=== PATIENT | male | born 1950 | race Caucasian/White ===

== ENCOUNTER → 2017-12-29 06:00 | Day surgery (SDC) | payer MEDICARE, MEDICAID ==
[~2017-12-29 06:00] MED LIST: Acetaminophen TAB* 325 MG PO PRN; Buffered Lidocaine 0.9% SYRIN* 5 ML/SYR SYRINGE INTRADERM ONE; Buffered Lidocaine 0.9% SYRIN* 5 ML/SYR SYRINGE ONE; Bupivacaine 0.5% SDV PF* 10-30ML VIAL ONE; Cisatracurium* 2 MG/ML MDV 5 ML ONE; Dexamethasone IV* 4 MG/ML 1 ML (4 MG) ONE; DiMENhydriNATE IV* 50 MG/ML VIAL IV PUSH PRN; EPINEPHRINE 1 MG/ML 1 ML VIAL ONE; Famotidine IV* 10 MG/ML 2 ML (20 mg) ONE; HYDROcodone/ACETAMIN 5-325 MG* 1 TAB PO PRN; Ketorolac INJ* 30 MG/ML 1 ML VIAL ONE; Labetalol IV* 5 MG/ML 20 ML VIAL ONE; Levalbuterol 0.63MG/3ML NEB* UNIT OF USE INH PRN; Midazolam* 1 MG/ML 2 ML VIAL (2 MG) ONE; Naloxone* 0.4 MG/ML 1 ML VIAL IV PRN; Ondansetron INJ* 2 MG/ML VIAL IV PRN; Ondansetron INJ* 2 MG/ML VIAL ONE; PROCHLORPERAZINE INJ 5 MG/ML 2 ML VIAL IV PRN; Propofol* 10 MG/ML 20 ML BTL IV PUSH ONE; ROPIVACAINE 5 MG/ML 30 ML BTL (0.5%) ONE; Succinylcholine* 20 MG/ML 10 ML VIAL ONE; ceFAZolin 2 GM in 100 MLS NS (*) BAG IVPB ONE; fentaNYL* 50 MCG/ML 2 ML VIAL (100 MCG VIAL) IV PRN; fentaNYL* 50 MCG/ML 2 ML VIAL (100 MCG VIAL) ONE; fentaNYL* 50 MCG/ML 5 ML VIAL (250 MCG VIAL) ONE
[2017-12-29 13:43] VITALS: BP 140/82
--- NOTE | 2018-01-01 07:59 | OP ---
DATE OF OPERATION: 12/29/17 - [facility] DATE OF : 46 SURGEON: Marquis Lamb MD CLOTH WORKER: KEDAR Sylvester. A physician administrative assistant receptionist was required for the length of the procedure for positioning, assistance with instrumentation, and closure. ANESTHESIOLOGIST: Hakeem Cortes MD ANESTHESIA: General anesthesia, regional interscalene block anesthesia, local anesthesia with 10 cc of Marcaine 0.5% without epinephrine at the surgical incision sites. PRE-OP DIAGNOSES: 1. Left shoulder rotator cuff tear, recurrent. 2. Left shoulder subacromial bursitis and impingement. 3. Left shoulder possible biceps tendinosis, likely superior labral tear. 4. History of [address] Pappas at [facility], consisting of supraspinatus rotator cuff tendon repair, subacromial decompression, distal clavicle resection. POST-OP DIAGNOSES: 1. Left shoulder rotator cuff tendon tear, subscapularis. 2. Recurrent left shoulder rotator cuff tendon tear, supraspinatus, high grade , partial thickness. 3. Left shoulder subacromial bursitis and impingement. 4. Left shoulder biceps tendinosis and superior labral tear. 5. History of [address] Pappas. OPERATIVE PROCEDURE: 1. Left shoulder arthroscopic rotator cuff tendon repair, primary, subscapularis. 2. Left shoulder arthroscopic rotator cuff tendon repair, revision, supraspinatus. 3. Left shoulder arthroscopic subacromial decompression and bursectomy. 4. Left shoulder arthroscopic removal of foreign body, loose and foreign body, subacromial space. 5. Left shoulder arthroscopic limited debridement including release of biceps tendon, debridement of superior labrum, debridement of rotator interval and subacromial bursal tissue. ANTIBIOTICS: Ancef 2 g IV. IV FLUIDS: 500 cc crystalloid. COMPLICATIONS: None. SPECIMEN: None. IMPLANTS: Three suture anchors total, all Mitek Chidi and Chidi Gryphon anchors. There was one 4.5 mm double loaded suture anchor used for the subscapularis. There was 1 triple loaded 5.5 mm suture anchor used for a medial row of the supraspinatus. There was a knotless 5.5 mm suture anchor used for the lateral row and I used an additional stitch from that knotless anchor to place a simple stitch posterior to it. ESTIMATED BLOOD LOSS: Minimal. 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 See history and physical and prior clinic notes for full history. The patient responded insufficiently to nonoperative management and opted for surgery. CT arthrogram showed a communication of contrast between glenohumeral and subacromial spaces and a likely anterior supraspinatus rotator cuff tendon tear. Imaging showed 3 metallic suture anchors from prior supraspinatus rotator cuff tendon repair. There is much bony gap between the acromion and distal clavicle. There was, however, a reformation of a little bit of hook of the anterior most aspect of the acromion. There is some question of disease at the biceps and superior labrum both on imaging and exam. I spoke to the patient about biceps release versus tenodesis as needed. He deferred to my judgment. Given the patient's age and his diabetes, my preference was to do a biceps release and avoid another incision. DESCRIPTION OF PROCEDURE: In preoperative holding, the patient signed a written consent. Operative extremity was marked in preoperative holding. The patient underwent a regional interscalene block by Dr. Cortes. The patient was brought to the operating room, placed supine on operating room table. The patient was sedated and intubated. The patient was placed in the left lateral decubitus position. Axillary roll placed. All bony prominences padded. Beanbag was stiffened up. Left shoulder was placed in the appropriate amount of forward flexion and abduction with 15 pounds of longitudinal traction. Hair above the shoulder had been shaved. Left shoulder was prepped with ChloraPrep and then draped. Surgical time-out performed. 30 cc of normal saline was used into the glenohumeral joint posterior. I then established posterior glenohumeral joint portal and started my diagnostic arthroscopy. There was a significant tendinosis as well as tearing of the biceps tendon. So , I decided to go beyond that, I would be cutting the biceps tendon. There was no significant articular cartilage damage to the humeral head of the glenoid. There was some clear fraying of the labrum in multiple rotations. No loose bodies in the axillary pouch. I looked at the subscapularis. There were certainly concern regarding a superior edge tear as well as an undersurface tear as much as footprint was visible to me as I viewed this insertion in a variety of positions of the humeral head. I made a standard anterior glenohumeral joint portal under direct visualization. I smoothed some frayed labrum. I debrided some tissue in the rotator interval. I just introduced the arthroscopic scissors and kept the long head of the biceps tendon just off of its origin. Retracted distally. There was much tendon about the superior labrum that I smoothed out with the arthroscopic shaver. I looked about the undersurface of the supraspinatus. There was clearly some footprint, undersurface, visible but it was less than 5 to 6 mm. The tendon visible was all intact to its insertion. There was no retracted undersurface tear. I next looked more carefully at the subscapularis. I debrided some synovitic tissue about its insertion. It was cleared that there was a subscapularis tendon tear. I utilized a grasper and showed how the tendon should reduce to bone. I next established an anterosuperior portal. Through this portal, I prepared the footprint dye shaving it and then using an arthroscopic brandon, I then introduced a 7- mm Arthrex plastic cannula. I next made an anteroinferior portal, placed more medially such I would have an excellent trajectory to bone. With the metal cannula in place, I tacked bone and then placed my 4.5 mm double-loaded suture anchor. Utilizing my anterosuperior and anteroinferior portals, I then placed 2 stitches in the subscapularis. One was a horizontal mattress while the other one was more of a vertical mattress, but is truly oblique. Knots were tied. Sutures were cut. I liked the position at the subscapularis tendon. Excellent reduction. I then removed instruments and fluid from the glenohumeral joint. I then entered the subacromial space from posterior and anterior. There was not bursitic tissue up high, but eventually I realized there was significant bursitic tissue in the gutters about the humeral head. Immediately visible was a floating loose body consisting of synovitic tissue and some suture material, clearly from the patient's prior rotator cuff repair. A lateral subacromial portal was established under direct visualization. I used a grasper to remove the foreign and loose body. I then used an arthroscopic shaver from lateral to debride significant bursitic tissue about the gutters of the subacromial space opening that up nicely. It should be stated that when I was in the glenohumeral joint, I had placed a marking spinal needle, just prior to leaving the glenohumeral joint. This was placed in the anteriormost supraspinatus tendon where it appeared to be slightly thinned from its undersurface. As I entered the subacromial space, I was able to visualize where that needle was placed. There was some suture material present about that marking spinal needle, so the rotator cuff tear repair done previously had clearly involved that anterior aspect of the supraspinatus tendon. While there was no full-thickness tear immediately visible, I debrided some bursitic tissue overlying the rotator cuff and this allowed better and better visualization of the tendon itself. I next addressed the anterior aspect of the acromion. I debrided the undersurface of the acromion with a VAPR. I next removed approximately 8 mm of the anteriormost aspect of the acromion, flattening out the undersurface of the acromion, using an arthroscopic brandon. I next returned my visualization of the rotator cuff tendon. Anterior aspect of the supraspinatus tendon was probed with arthroscopic probe and then a switching stick. There was clearly some tendon material present there. I even returned my arthroscope to the glenohumeral joint as I probed this to confirm the lack of a full-thickness tear. However, looking closely at this rotator cuff, it seemed that there was clearly some amount of substantive bursal-sided tearing present that was likely to be symptomatic. I was able to take a grasper and reduced the tendon to bone that was torn, high grade, partial thickness. Therefore, he decided to do a supraspinatus revision rotator cuff repair. I completed the supraspinatus with an arthroscopic shaver. This involved debridement of very minimal amount of tissue. I cleared off some greater tuberosity footprint with arthroscopic shaver and then VAPR. I touched down with an arthroscopic brandon to best prepare the footprint. I next created a superolateral portal and placed a triple-loaded Mitek Gryphon anchor in bone. Bone fit was excellent. I placed 3 horizontal mattress stitches in the rotator cuff tendon using Mitek IDEAL suture passers. I waited to tie these knots until I passed all sutures. Repair of tendon to bone appeared excellent. In a desire to have a greater area of healing as well as to put some more fixation slightly more posterior, I decided to place a lateral row anchor. Therefore, I took one suture from each of the three medial row horizontal mattress stitches and I placed them in a knotless 5.5 mm suture anchor that placed more lateral in the footprint. I also used the suture present in that knotless anchor to place a simple stitch with the rotator cuff tendon tissue just posterior and medial to it. I probed my repair and liked it a lot. It was certainly stable as I moved the humeral head. I next reassessed my subacromial decompression. I debrided a little bit more acromion slightly more medially towards the AC joint. I then debrided some bursitic tissue about the AC joint. I confirmed the wide gap between acromion and distal clavicle, seen preoperatively on x-ray, evidence of a prior distal clavicle resection. I opened that up, removing some soft tissue with an arthroscopic shaver, but did not debride any more distal clavicle. I removed instruments and fluid from subacromial space. I closed the skin incisions with [id number] in 12 stitches using nylon 4-0 suture. At the request of Anesthesia, placed 10 cc of 0.5% Marcaine in the subcutaneous tissue surrounding those incisions. Xeroform, 4 x 4s, ABDs, foam tape. Sling with abduction pillow. Cooling unit. The patient was extubated and transferred to the PACU. DISPOSITION: The patient will start physical therapy within the week following surgery. Wound care instructions are in his paperwork. The patient will be given Percocet as needed for pain control and aspirin to prevent blood clot. We will follow up in 10 to 14 days postoperatively. [id number]/[facility] #: [id number] CARMEN
== END | disposition home or self-care (01) ==
LOC: OR 06:00
PROVIDERS: ATTEND Orthopaedic Surgery
DX: S46.012A Strain of muscle(s) and tendon(s) of the rotator cuff of left shoulder, initial encounter (principal); M75.22 Bicipital tendinitis, left shoulder; M75.52 Bursitis of left shoulder; M75.42 Impingement syndrome of left shoulder; E11.9 Type 2 diabetes mellitus without complications; Z79.84 Long term (current) use of oral hypoglycemic drugs; I25.10 Atherosclerotic heart disease of native coronary artery without angina pectoris; J44.9 Chronic obstructive pulmonary disease, unspecified; M10.9 Gout, unspecified; G89.18 Other acute postprocedural pain; X58.XXXA Exposure to other specified factors, initial encounter; Y92.9 Unspecified place or not applicable
CPT/HCPCS: J0330; J1100; J1885; J2250; J2405; J2704; J2795; J3010

== ENCOUNTER 2019-08-20 05:38 | Inpatient (IN) | payer MEDICARE, MEDICAID ==
--- NOTE | 2019-08-07 13:25 | HP ---
PREOPERATIVE HISTORY AND PHYSICAL: DATE OF SURGERY SCHEDULED: 08/20/19 DATE OF OFFICE VISIT: 08/07/19 ATTENDING PHYSICIAN: Nazanin Washington MD * (DICTATED BY KEDAR PIERRE) SURGERY SCHEDULED: Right total knee arthroplasty. CHIEF COMPLAINT: Right knee pain. HISTORY OF PRESENT ILLNESS: Mr. Martinez is a 69-year-old male with complaints of right knee pain, about 6-10/10, aching pain along the joint line of the right knee. Over the last 2 years, he has had discomfort, but the last 2 months have been quite severe. He can no longer walk more than a block without pain. He has difficulty stair climbing and standing. He has tried antiinflammatories, pain medication, and home exercise program and wears a brace without significant relief of his pain. He now elected to proceed with right total knee arthroplasty scheduled 08/20/19. PAST MEDICAL HISTORY: Significant for coronary artery disease, osteoarthritis, COPD, asthma, gout, and type 2 diabetes. PAST SURGICAL HISTORY: Carpal tunnel release, left rotator cuff surgery, thumb surgery on the right, cardiac stent placement x3. CURRENT MEDICATIONS: 1. Cyclobenzaprine 10 mg p.o. 3 times daily as needed. 2. Tramadol 50 mg 1 p.o. q.6 hours p.r.n. pain. 3. Naproxen 500 mg 1 p.o. b.i.d. as needed. 4. Victoza 0.6 mg p.o. daily. 5. Nitrostat 0.1 mg sublingual p.r.n. chest pain. 6. Allopurinol 100 mg p.o. daily. 7. Low-dose aspirin 81 one p.o. daily. 8. Glyburide/metformin 2.5/500 mg take 2 tablets b.i.d. 9. Ventolin 2 puffs every 4 hours as needed for shortness of breath. 10. Atenolol 50 mg p.o. daily. 11. Incruse Ellipta 62.5 mcg/inhaler as needed daily. 12. Hydrochlorothiazide 25 mg 1 p.o. daily. ALLERGIES: No known drug allergies. FAMILY HISTORY: Maternal heart disease, hypertension, and stroke. Father with a history of prostate cancer. SOCIAL HISTORY: The patient lives with his . He is retired. He does not use tobacco, alcohol, or recreational drugs. REVIEW OF SYSTEMS: No recent history of chest pain. He does have a chronic dry cough. There is chronic back pain. Occasional constipation. Purposeful weight loss. He denies recent shortness of breath. Denies urinary symptoms. PHYSICAL EXAMINATION GENERAL: He is alert and oriented x3, in no acute distress. Pleasant and cooperative. VITAL SIGNS: Height 68 inches, weight 243, pulse 87, BP 144/96. Temperature 96.8. HEENT: PERRLA. LUNGS: Clear to auscultation without wheeze. HEART: Regular rate and rhythm. No murmur auscultated. ABDOMEN: Obese, nontender. Normoactive bowel sounds x4 quadrants. EXTREMITIES: Right knee, no open wounds or excoriations. There is a moderate effusion of the knee joint, tenderness along the medial joint line roughly 10 degrees to 100 degrees flexion with noted patellofemoral crepitus. There is no varus or valgus instability. Positive Apley's and Venkatesh's. He has active dorsiflexion and plantarflexion of the right ankle. He has full sensation, has 2+ DP pulse. DIAGNOSTIC STUDIES/LAB DATA: Studies of the right knee, plain films revealed advanced osteoarthritis with essential [id number] contact in the medial and patellofemoral compartment. IMPRESSION: Advanced osteoarthritis of the right knee. PLAN: The patient has failed conservative management including cortisone injection, has elected to proceed with total knee arthroplasty, is scheduled with Dr. Washingtno on 08/20/19. Risks and benefits of the procedure fully discussed with Dr. Washington at the office visit today and he elected to proceed. He will follow up in roughly 10 to 14 days postoperatively. KEDAR PIERRE [id number]/[facility] #: [id number] CARMEN
[~2019-08-20 05:38] MED LIST changes: -Acetaminophen TAB* 325 MG PO PRN; -Buffered Lidocaine 0.9% SYRIN* 5 ML/SYR SYRINGE INTRADERM ONE; -Buffered Lidocaine 0.9% SYRIN* 5 ML/SYR SYRINGE ONE; +Buffered Lidocaine 1% SYRIN* 1 ML/SYRINGE INTRADERM ONE; -Bupivacaine 0.5% SDV PF* 10-30ML VIAL ONE; -Cisatracurium* 2 MG/ML MDV 5 ML ONE; -Dexamethasone IV* 4 MG/ML 1 ML (4 MG) ONE; -DiMENhydriNATE IV* 50 MG/ML VIAL IV PUSH PRN; -EPINEPHRINE 1 MG/ML 1 ML VIAL ONE; -Famotidine IV* 10 MG/ML 2 ML (20 mg) ONE; -HYDROcodone/ACETAMIN 5-325 MG* 1 TAB PO PRN; -Ketorolac INJ* 30 MG/ML 1 ML VIAL ONE; -Labetalol IV* 5 MG/ML 20 ML VIAL ONE; -Levalbuterol 0.63MG/3ML NEB* UNIT OF USE INH PRN; -Midazolam* 1 MG/ML 2 ML VIAL (2 MG) ONE; -Naloxone* 0.4 MG/ML 1 ML VIAL IV PRN; -Ondansetron INJ* 2 MG/ML VIAL IV PRN; -Ondansetron INJ* 2 MG/ML VIAL ONE; -PROCHLORPERAZINE INJ 5 MG/ML 2 ML VIAL IV PRN; -Propofol* 10 MG/ML 20 ML BTL IV PUSH ONE; -ROPIVACAINE 5 MG/ML 30 ML BTL (0.5%) ONE; -Succinylcholine* 20 MG/ML 10 ML VIAL ONE; +Tranexamic Acid 1,000 MG in NS 0.9% 50 ML* (outpatient use) IV SCH; -ceFAZolin 2 GM in 100 MLS NS (*) BAG IVPB ONE; -fentaNYL* 50 MCG/ML 2 ML VIAL (100 MCG VIAL) IV PRN; -fentaNYL* 50 MCG/ML 2 ML VIAL (100 MCG VIAL) ONE; -fentaNYL* 50 MCG/ML 5 ML VIAL (250 MCG VIAL) ONE
--- OUTSIDE RECORDS SUMMARY | 2019-08-20 05:42 | XMS REPORT | Continuity of Care Document ---
:1950 External Reference #:[id number] Author Name Nazanin Washington M.D. (transmitted by agent of provider Carmen Meza) Address [address] [place] [address] [place] [address] Care Team Providers Name Role Phone Annita Streeter MD - Internal Care Team Information Metal Spray Operator Medicine Etienne Brown NP - Family Care Team Information Metal Spray Operator [phone] Problems Active Problems Provider Date Localized, primary osteoarthritis Nazanin Washington M.D. Onset: 02/13/2019 Social History Type Date Description Comments Sex Unknown ETOH Use Denies alcohol use Tobacco Use Start: Unknown Patient has never smoked Smoking Status Reviewed: 08/07/19 Patient has never smoked Exercise Type/Frequency Exercises sporadically Allergies, Adverse Reactions, Alerts Description No Known Drug Allergies Medications Active Medications SIG Qnty Indications Ordering Date Provider Cyclobenzaprine HCL 1 tab PO three 30tabs Parvez Dallas, 04/22/2019 10mg Tablets times daily as needed Tramadol HCL Take One Tablet 30tabs M25.562 Nazanin Washington, 02/13/2019 50mg Tablets By Mouth Every M.D. 6 Hours as Needed For Pain; Maximum Daily Dose = 4 Naproxen 1 by mouth 60tabs S46.012A Marquis F 10/03/2017 500mg Tablets twice a day as MD Zainab needed pain Victoza 0.6 mg daily Unknown Nitrostat prn Unknown 0.1mg Tablets Sub Allopurinol 1 by mouth Unknown 100mg Tablets every day Aspirin Ec Low Dose 1 by mouth Unknown 81mg Tablets every day DR Glyburide-Metformin take 2 tablets Unknown 2.5-500mg by mouth twice Tablets a day Ventolin HFA 2 puffs every 4 Unknown 108(90Base) mcg/Act hours as needed Aerosol Atenolol 1 by mouth Unknown 50mg Tablets every day Incruse Ellipta as directed Unknown 62.5mcg/Inh Aerosol Hydrochlorothiazide 1 by mouth Unknown 25mg Tablets every day Medications Administered in Office Medication SIG Qnty Indications Ordering Provider Date Depomedrol 40MG Nazanin Washnigton M.D. 05/31/2019 Injection Synvisc Or Synvisc-One Nazanin Washington M.D. 04/22/2019 Injection 1 MG Injection Synvisc Or Synvisc-One Nazanin Washington M.D. 04/12/2019 Injection 1 MG Injection Synvisc Or Synvisc-One Nazanin Washington M.D. 04/01/2019 Injection 1 MG Injection Depomedrol 40MG Nazanin Washington M.D. 02/13/2019 Injection Dexamethasone Sodium Marquis Lamb MD 11/16/2017 Phosphate, 1 MG Injection Depomedrol 40MG Marquis Lamb MD 10/03/2017 Injection Immunizations Description No Information Available Vital Signs Date Vital Result Comment 08/07/2019 9:52am Height 68 inches 5'8" Weight 243.00 lb Heart Rate 87 /min BP Systolic Sitting 144 mmHg BP Diastolic Sitting 96 mmHg Respiratory Rate 18 /min Body Temperature 96.8 F Pain Level 7 O2 % BldC Oximetry 95 % BMI (Body Mass Index) 36.9 kg/m2 05/31/2019 1:08pm Height 68 inches 5'8" Weight 242.00 lb Heart Rate 80 /min BP Systolic 130 mmHg BP Diastolic 68 mmHg Respiratory Rate 20 /min Pain Level 10 BMI (Body Mass Index) 36.8 kg/m2 Results Description No Information Available Procedures Date Code Description Status 05/31/2019 Inject/Drain Joint/Bursa Major W/O US Completed 04/22/2019 Inject/Drain Joint/Bursa Major W/O US Completed 04/12/2019 Inject/Drain Joint/Bursa Major W/O US Completed 04/01/2019 Inject/Drain Joint/Bursa Major W/O US Completed 02/13/2019 88278 Inject/Drain Joint/Bursa Major W/O US Completed Medical Devices Description No Information Available Encounters Type Date Location Provider Dx Diagnosis Office Visit 05/31/2019 [facility] Nazanin Washington, M25.561 Pain in right 1:[facility] knee M25.461 Effusion, right knee M17.11 Unilateral primary osteoarthritis, right knee Office Visit 03/22/2019 1:30p [facility] Nazanin Washington, M25.562 [facility] in [facility] M.[facility] knee M25.462 Effusion, left knee M17.12 Unilateral primary osteoarthritis, left knee Office Visit 02/13/2019 9:15a [facility] Nazanin Washington, M25.562 [facility] in left [facility] M.[facility] knee M25.462 Effusion, left knee M17.12 Unilateral primary osteoarthritis, left knee Assessments Date Code Description Provider 07/01/2019 M25.561 Pain in right knee Nazanin Washington M.D. 07/01/2019 M25.461 Effusion, right knee Nazanin Washington M.D. 07/01/2019 M17.11 Unilateral primary osteoarthritis, right knee Nazanin Washington M.D. 05/31/2019 M25.561 Pain in right knee Nazanin Washington M.D. 05/31/2019 M25.461 Effusion, right knee Nazanin Washington M.D. 05/31/2019 M17.11 Unilateral primary osteoarthritis, right knee Nazanin Washington M.D. 04/22/2019 M25.562 Pain in left knee Nazanin Washington M.D. 04/22/2019 M25.462 Effusion, left knee Nazanin Washington M.D. 04/22/2019 M17.12 Unilateral primary osteoarthritis, left knee Nazanin Washington M.D. 04/12/2019 M25.562 Pain in left knee Nazanin Washington M.D. 04/12/2019 M25.462 Effusion, left knee Nazanin Washington M.D. 04/12/2019 M17.12 Unilateral primary osteoarthritis, left knee Nazanin Washington M.D. 04/01/2019 M25.562 Pain in left knee Nazaninyeimi Washington, M.D. 04/01/2019 M25.462 Effusion, left knee Nazanin Washington M.DBret 04/01/2019 M17.12 Unilateral primary osteoarthritis, left knee Cory Cueva.DBret 03/22/2019 M25.562 Pain in left knee Nazaninisabel Washington, M.D. 03/22/2019 M25.462 Effusion, left knee Nazaninyeimi Washington, M.DBret 03/22/2019 M17.12 Unilateral primary osteoarthritis, left knee Nazanin Washington M.D. 02/13/2019 M25.562 Pain in left knee Nazaninyeimi Washington, M.DBret 02/13/2019 M25.462 Effusion, left knee Nazanin Washington M.DBret 02/13/2019 M17.12 Unilateral primary osteoarthritis, left knee Naznain Washington M.D. Plan of Treatment Future Appointment(s):08/30/2019 10:15 am - Nazanin Washington M.D. at [facility]08/20/2019 9:30 am - Nazanin Washington M.D. at [facility]09/02/2019 10:00 am - Nazanin Washington M.D. at [facility] Functional Status Description No Information Available Mental Status Description No Information Available Referrals Description No Information Available
[2019-08-20] MEDS: Lactated Ringers 1000 ML Bag* 1,000 ML IV SCH ×2 (06:27→06:59)
[2019-08-20] MEDS ORDERED: ceFAZolin 2 GM in NS PREMIX(*) 2 GM/100 ML BAG IVPB ONE (06:41)
[2019-08-20] MEDS ORDERED: Buffered Lidocaine 1% SYRIN* 1 ML/SYRINGE INTRADERM ONE (06:43)
[2019-08-20] MEDS ORDERED: Bupivacaine 0.25% SDV* 30 ML ONE (07:18)
[2019-08-20] MEDS ORDERED: Midazolam* 1 MG/ML 5 ML VIAL (5 MG) ONE ×2 (07:20→08:23)
[2019-08-20] MEDS ORDERED: Bupivacaine 0.5%* 50 ML MDV VIAL ONE (07:23)
[2019-08-20] MEDS ORDERED: fentaNYL* 50 MCG/ML 2 ML VIAL (100 MCG VIAL) ONE ×2 (08:00→10:18)
[2019-08-20] MEDS ORDERED: oxyCODONE TAB* 5 MG TAB PO PRN (09:06)
[2019-08-20] MEDS ORDERED: fentaNYL* 50 MCG/ML 2 ML VIAL (100 MCG VIAL) IV PRN (09:06)
[2019-08-20] MEDS ORDERED: Ondansetron INJ* 2 MG/ML VIAL IV PRN ×2 (09:06→10:40)
[2019-08-20] MEDS ORDERED: Naloxone* 0.4 MG/ML 1 ML VIAL IV PRN (09:06)
[2019-08-20] MEDS ORDERED: DiMENhydriNATE IV* 50 MG/ML VIAL IV PUSH PRN (09:06)
[2019-08-20] MEDS ORDERED: HYDROmorphone INJ1* 1 MG/ML SYRINGE IV PRN (09:06)
[2019-08-20] MEDS ORDERED: Acetaminophen IV 1GM/100ML * 1,000 MG/100 ML VIAL IVPB ONE (09:06)
[2019-08-20] MEDS ORDERED: diPHENhydraMINE PO* 25 MG PO PRN (10:40)
[2019-08-20] MEDS ORDERED: oxyCODONE/Acetamin 5/325 MG* TAB PO PRN (10:40)
[2019-08-20] MEDS ORDERED: Magnesium Hydroxide LIQ* 30 ML UDC PO PRN (10:40)
[2019-08-20] MEDS ORDERED: diPHENhydraMINE IV* 50 MG/ML 1 ml VIAL (BENADRYL) IV PRN (10:40)
[2019-08-20] MEDS ORDERED: Polyethylene Glycol 3350* 17 GM PACKET PO PRN (10:40)
[2019-08-20] MEDS ORDERED: Ondansetron ODT TAB* 4 MG PO PRN (10:40)
[2019-08-20] MEDS ORDERED: Temazepam CAP* 15 MG PO PRN (10:40)
[2019-08-20] MEDS ORDERED: Nitroglycerin TAB 0.4 MG* 0.4 MG TAB SL PRN (10:46)
[2019-08-20] MEDS ORDERED: Albuterol HFA INHALER* 8 gm MDI INH PRN (10:46)
[2019-08-20] MEDS: oxyCODONE/Acetamin 5/325 MG* TAB PO PRN ×2 (13:04→18:08)
[2019-08-20] MEDS ORDERED: Dextrose 50% VIAL 50 ml IV PUSH PRN (14:11)
[2019-08-20] MEDS: oxyCODONE TAB* 5 MG TAB PO PRN ×2 (15:09→20:20)
[2019-08-20] MEDS: ceFAZolin 1 GM ADVAN(*) 1 GM in NS 0.9% 50 ML* 50 ML IVPB SCH (15:14)
--- NOTE | 2019-08-20 15:14 | PN ---
Progress Note - Progress Note Date of Service: 08/20/19 - Post-op Note: Post-op: S/P right TKA- Patient resting comfortably in bed. He has mild pain and has received medication. He denies SOB or CP. He can actively DF/PF, sensation intact, 2+ DP pulses. He has not been OOB with PT yet. Continue PT, and pain management. We appreciate medicine's insurance counselor and we will follow.
--- NOTE | 2019-08-20 16:33 | CONS ---
[facility] MEDICINE CONSULTATION REPORT: DATE OF CONSULT: 08/20/19 ATTENDING PHYSICIAN: Dr. Nazanin Washington. CONSULTING PHYSICIAN: Dr. Hawa Crystal (dictated by Sonja Pelayo NP) REASON FOR CONSULT: Co-management of chronic medical conditions. HISTORY OF PRESENT ILLNESS: Mr. Martinez is a 69-year-old male with a past medical history significant for coronary artery disease, osteoarthritis, COPD, asthma, gout, type 2 diabetes, who presented to [facility] for an elective right total knee arthroplasty with Dr. Washington. Please see dictated H and P from KEDAR Anglin, for complete details. In brief, the patient had ongoing pain, failed conservative measures, therefore opted to have a right total knee arthroplasty with Dr. Washington. In the immediate postoperative period, the patient has no complaints. He denies any recent illness. He denies fever, chills, chest pain, shortness of breath. Denies any nausea, vomiting, diarrhea , abdominal pain, hematuria or dysuria. Denies any focal weakness or sensory loss. Denies any visual complaints. He does complain of right knee pain. Due to the patient's history of diabetes, COPD, coronary artery disease, Hospital Medicine was asked to see and help co- manage his care during his hospitalization. PAST MEDICAL HISTORY: Significant for coronary artery disease, osteoarthritis, COPD, asthma, gout, type 2 diabetes. PAST SURGICAL HISTORY: 1. Carpal tunnel. 2. Left rotator cuff. 3. Thumb surgery. 4. Cardiac stents x3. HOME MEDICATIONS: Include: 1. Flexeril 10 mg p.o. t.i.d. p.r.n. 2. Tramadol 50 mg p.o. q.6 hours as needed. 3. Naproxen 500 mg 1 tablet twice daily as needed. 4. Victoza 1.2 mg daily. 5. Nitro 0.4 mg sublingual as needed for chest pain. 6. Allopurinol 100 mg p.o. b.i.d. 7. Aspirin 81 mg p.o. daily. 8. Incruse Ellipta 62.5 two puffs daily. 9. Glyburide/metformin 2.5/500 two tabs b.i.d. 10. Ventolin inhaler HFA 2 puffs twice daily as needed for shortness of breath. 11. Hydrochlorothiazide 25 mg p.o. daily. 12. Lisinopril 20 mg p.o. daily. ALLERGIES: No known drug allergies. FAMILY HISTORY: Mother with history of stroke, no reported history of diabetes. Father with prostate cancer. Mother with uterine cancer. SOCIAL HISTORY: The patient reports occasional alcohol use. Denies any smoking or illicit drug use. Surrogate decision-maker in the event he is unable to make his own decisions is his . He is full code. REVIEW OF SYSTEMS: An 11-point review of systems was completed. All pertinent positives were mentioned in the HPI, otherwise were negative. PHYSICAL EXAM: General: At this time, Mr. Martinez is alert and oriented, resting on a stretcher in his hospital room. He is in no acute distress. Vital Signs: Blood pressure 126/84, heart rate 70, respirations are 16, O2 saturation 96%, temperature was 97.1. HEENT: Head is atraumatic, normocephalic. Eyes: EOMs are intact. Sclera anicteric and not pale. Oral mucosa appeared to be moist. Neck is supple. Lungs are clear to auscultation bilaterally. There are no wheezes, rales, or rhonchi. Cardiac: S1, S2. Regular rate and rhythm. No murmurs, rubs, or gallops. Abdomen: Soft and nontender. Bowel sounds are present x4 extremities. He is able to move all 4 extremities. He does have a dressing that is dry and intact to his right knee. Ice is intact to his right knee. Pedal pulses are +2 bilaterally. Sensation is intact. Neurologic: He is awake, alert, oriented x3. Speech is clear, thought process intact. There is no gross focal deficit. Skin: He does have a dry intact dressing to the right knee. DIAGNOSTIC STUDIES/LAB DATA: CBC from 08/06/19: WBCs were 8.8, RBC 5.00, hemoglobin 15.0, platelet count was 186, hematocrit was 144. INR from 08/07/19 was 1.05. BMP from 08/06/19: Sodium 138, potassium 4.2, chloride 100, carbon dioxide 30, anion gap is 8, BUN was 17, creatinine 0.94. Glucose is 117, calcium was 9.6, ASTs were 31, ALTs were 40, alkaline phosphatase was 46. Urine from 08/07/19 was within normal limits with exception specific gravity was 1.006. IMPRESSION AND PLAN: Mr. Martinez is a 69-year-old male with a past medical history significant for coronary artery disease, osteoarthritis, chronic obstructive pulmonary disease, asthma, gout, type 2 diabetes, hypertension, who presented to [facility] for elective right total knee arthroplasty with Dr. Washington in the immediate postop period. The patient has no complaints and recommendations are as follows: 1. Status post right total knee arthroplasty. Management per Orthopedics, PT/ OT per Orthopedics, bowel regime per Orthopedics, pain management per Orthopedics, DVT prophylaxis per Orthopedics. 2. Coronary artery disease. The patient should resume aspirin 81 mg when able. 3. Type 2 diabetes. I will hold the patient's Victoza and metformin/glyburide. I will place him on fingersticks a.c. and lispro sliding scale. 4. Chronic obstructive pulmonary disease. The patient should continue with Incruse Ellipta and Ventolin inhaler as previously prescribed. 5. Hypertension. I am going to hold his hydrochlorothiazide and lisinopril at this time. We will reevaluate his blood pressure tomorrow and resume as able. 6. FEN. He can have thick consistent carb, heart healthy, caffeine okay diet. 7. Code status. He is full code. 8. DVT prophylaxis as per Orthopedics. TIME SPENT: Time spent on this consultation was 45 minutes. Greater than half of that time was spent at the bedside reviewing events leading thus far to his hospitalization, performing physical exam and reviewing my plan of care. I have discussed this with my attending, Dr. Hawa Crystal; she is in agreement with my plan. SONJA PELAYO, [employer] [id number]/CPS #: [id number] CARMEN
[2019-08-20] MEDS: Morphine INJ* 2 MG/ML 1 ML SYRINGE (TWO MG - NEW SYRINGE VERSION) IV PRN (16:38)
--- NOTE | 2019-08-20 17:28 | OP ---
Operative Report - Blank - Operative Report Date of Operation: 08/20/19 Note: LATRELL RASCON 1950 Date of Surgery: 08/20/19 Nazanin Washington MD Estimator Printing: Ramirez THACKER did help throughout the procedure with preparation of the knee, wound retraction, manipulation of the knee, and wound closure. Anesthesiologist: Augustine Newberry MD Anesthesia Type: Spinal Preoperative Diagnosis: Right severe degenerative osteoarthritis of the knee Postoperative Diagnosis: As above Procedure Performed: Right Total Knee Arthroplasty Tourniquet time: 56 minutes Complications: None Specimen: Bone and cartilage from the right knee joint sent to pathology. Hardware Used: Cemented Randolph [employer] Nephew total knee hardware was used - For the femur a size 6 narrow right legion posterior stabilized femoral component, for the tibia a size 5 right gerard II tibial baseplate, for the insert a size 9mm 5-6 posterior stabilized articular polyethylene insert, and for the patella a size 32 3-peg all poly patella. Brief History/Indication: LATRELL RASCON was known in clinic and had a history of severe right knee pain and swelling. She failed conservative treatment with anti-inflammatories, pain pills, intra-articular injections and physical therapy. She elected to undergo right total knee arthroplasty due to continued pain and decreased quality of life. Radiographs showed severe end stage osteoarthritis of the knee with bone on bone contact. Informed consent was obtained from the patient. She understood the risks of surgery included but were not limited to: bleeding, infection, damage to nearby structures, intraoperative fracture, nerve palsy, failure of the hardware, early loosening, knee stiffness or loss of motion, anesthesia complications, stroke, heart attack , blood clot and . She wished to proceed. Intra-Operative Findings: Intraoperatively the patient was noted to have severe loss of cartilage in all 3 compartments of the knee. Description of the Procedure: LATRELL RASCON was identified in the preanesthesia unit. Her right knee was marked as the correct operative side. Informed consent was signed and placed in the chart. The patient was taken to the operating room and placed under anesthesia without complication. A noble catheter was placed. A tourniquet was placed on the right thigh. The right lower extremity was prepped and draped in the usual sterile fashion. Preoperative time-out was made to correctly identify the patient, side and site. Appropriate intraoperative antibiotics were given within one hour of incision. Tourniquet was inflated. A midline incision was made and carried sharply down to the extensor mechanism. A new 10 blade was used to make a standard medial parapatellar arthrotomy. The patella was subluxed laterally. Electrocautery was used to dissect soft tissue off the superomedial tibia to the midsagittal plane. The knee was flexed up. The anterior horn of the lateral meniscus and the ACL were sharply incised. A drill was used to enter the distal femur. The intramedullary distal femoral cutting guide was pinned on the distal femur. The oscillating saw was used to make the distal femoral cut. The external rotation guide was pinned on the distal femur and the distal femur was sized to a size 6. The size 6 multi-cutting jig was pinned on the distal femur. The oscillating saw was used to make the appropriate 4 chamfer cuts. Next the PCL was completely released. The extramedullary tibial cutting guide was pinned on the proximal tibia and the oscillating saw was used to make the proximal tibial cut perpendicular to the mechanical axis of the tibia. The bone was carefully removed. The knee was brought out into full extension. The spacer block was placed and had excellent fit with the knee in full extension. The medial and lateral ligaments were well balanced. The flexion and extension gaps were well balanced. The knee was flexed up. Lamina metal sander was placed both medially and laterally. Any remaining meniscus was removed with electrocautery. Curved osteotome was used to remove any posterior osteophytes. The tibial tray and drop justo were placed and confirmed a satisfactory tibial cut. The size 6 narrow right femoral trial was impacted onto the distal femur. This trial had excellent fit and stability. The box for the posterior stabilized implant was prepared using a box cut osteotome and a reamer. Next a tibial tray trial and 9 mm insert trial was placed. The knee was taken through a range of motion and had full extension to 130 degrees of flexion. Patellofemoral tracking was satisfactory. The patella was inverted and sized to a size 32. Three peg holes were drilled through the size 32 drill guide. The trial patella was placed and the knee was taken through a range of motion. There was satisfactory patellofemoral tracking. All trials were removed. The tibia was subluxed anteriorly and sized to a size 5. The proximal tibial was prepared with a size 5 keel punch. All bony cut surfaces were irrigated with sterile saline and dried. Final implants were cemented into place starting with the tibia, followed by the femur, and last the patella. A 9 mm insert trial was placed and the knee was brought into full extension. Tourniquet was turned down and the knee was copiously irrigated with sterile saline. Electrocautery was used to obtain meticulous hemostasis. Once the cement had fully cured, the insert trial was removed. Any excess cement was removed from around the hardware and capsule. Final insert chosen was a 9 mm posterior stabilized Gerard II articular insert size 5-6. Stability of the insert was checked and noted to be stable. The extensor mechanism was closed using number 1 vicryls. The rest of the incision was closed in a layered fashion using 0 and 2-0 vicryls. The skin was closed using 3-0 nylon suture. Sterile xeroform, 4x4s and webril were used to cover the incision. Alvarado wrap and cold pack were used to cover the dressings. The patients anesthesia was reversed without difficulty. She was taken to the PACU in stable condition. Intended weight-bearing will be as tolerated.
[2019-08-20] MEDS: Cyclobenzaprine TAB* 10 MG PO PRN (18:04)
[2019-08-20] MEDS: Insulin LISPRO* 1 UNITS UNIT SUBCUT SCH (18:16)
[2019-08-20] MEDS: Allopurinol TAB* 100 MG PO SCH (20:20)
[2019-08-20] MEDS: Docusate CAP* 100 MG PO SCH (20:20)
[2019-08-20] MEDS: Magnesium Hydroxide LIQ* 30 ML UDC PO SCH (20:20)
[2019-08-20] MEDS: Acetaminophen TAB* 325 MG PO SCH (20:22)
[2019-08-20] MEDS ORDERED: metFORMIN* 1,000 MG TAB PO SCH (21:00)
[2019-08-20] MEDS ORDERED: glyBURIDE TAB* 5 MG PO SCH (21:00)
[2019-08-21] MEDS: Lactated Ringers 1000 ML Bag* 1,000 ML IV SCH ×2 (00:36→11:19)
[2019-08-21] MEDS: ceFAZolin 1 GM ADVAN(*) 1 GM in NS 0.9% 50 ML* 50 ML IVPB SCH ×2 (00:40→08:20)
[2019-08-21] MEDS: oxyCODONE/Acetamin 5/325 MG* TAB PO PRN ×2 (00:47→05:36)
[2019-08-21] MEDS: oxyCODONE TAB* 5 MG TAB PO PRN ×2 (03:53→08:27)
[2019-08-21] MEDS: Acetaminophen TAB* 325 MG PO SCH ×3 (06:04→20:34)
[2019-08-21] MEDS: Morphine INJ* 2 MG/ML 1 ML SYRINGE (TWO MG - NEW SYRINGE VERSION) IV PRN (06:34)
[2019-08-21 06:57] LABS: Hematocrit 38 % (42-52); Hemoglobin 12.7 g/dL (14.0-18.0); Mean Platelet Volume 10.1 fL (7.4-10.4); Platelet Count 159 10^3/uL (150-450)
[2019-08-21 07:13] LABS: Calcium 8.2 mg/dL (8.6-10.3); EGFR African American 107.5 (>60); EGFR Non-African American 88.9 (>60); Potassium 3.3 mmol/L (3.5-5.0)
[2019-08-21] MEDS: Insulin LISPRO* 1 UNITS UNIT SUBCUT SCH ×3 (08:21→17:43)
[2019-08-21] MEDS: Magnesium Hydroxide LIQ* 30 ML UDC PO SCH ×2 (08:23→20:33)
[2019-08-21] MEDS: Vitamin THERAPEUTIC TAB PO SCH (08:23)
[2019-08-21] MEDS: Allopurinol TAB* 100 MG PO SCH ×2 (08:23→20:33)
[2019-08-21] MEDS: Docusate CAP* 100 MG PO SCH ×2 (08:23→20:33)
[2019-08-21] MEDS: Apixaban* 2.5 MG TAB PO SCH ×2 (08:23→20:34)
[2019-08-21] MEDS: PTO:Umeclidinium 62.5 MDI(NF) MDI INH SCH (08:28)
[2019-08-21] MEDS ORDERED: Allopurinol TAB* 100 MG PO SCH (09:00)
[2019-08-21] MEDS ORDERED: Hydrochlorothiazide TAB* 25 MG PO SCH (09:00)
[2019-08-21] MEDS: PTO:Liraglutide (NF) 18 MG/3 ML SUBCUT SCH ×2 (09:23→11:00)
[2019-08-21] MEDS ORDERED: Potassium Chlor TAB* 20 MEQ TAB.ER PO ONE (10:09)
--- NOTE | 2019-08-21 11:12 | PN ---
Progress Note - Progress Note Date of Service: 08/21/19 SOAP: Subjective: []Pt seen at bedside. Reports 10/10 pain with movement but is motivated to go home today and is comfortable at rest. Denies CP, SOB, dizziness or nausea. Objective: []Gen: Appears well, NAD RLE: Right knee dressing CDI, thigh soft, DF/PF intact, DP2+, sensation intact to light touch distally. Calves supple and nontender without erythema, edema or palpable cords Assessment: []right total knee arthroplasty Plan: []WBAT PT Potassium replaced this morning 1x dose 40 meq eliquis 2.5 mg po BID x 30 days post op Pt desires DC home today, Will eval readiness to DC home after afternoon PT. Low grade T, encouraged IS Vital Signs Temp 100.3 F 08/21/19 07:38 Pulse 93 08/21/19 07:38 Resp 18 08/21/19 10:27 BP 131/73 08/21/19 07:38 Pulse Ox 96 08/21/19 07:38 Intake & Output 08/20/19 08/21/19 08/21/19 18:59 06:59 18:59 Intake Total 340 1737 Output Total 875 Balance 340 862 Intake: IV Fluids 100 1037 ABX - CEFAZOLIN 52 LR 985 NS 100ML, Cefazolin 2G 100 Oral 240 700 Output: Cortés 875 Laboratory Last Values Hgb 12.7 g/dL (14.0-18.0) L 08/21/19 06:27 Hct 38 % (42-52) L 08/21/19 06:27 Plt Count 159 10^3/uL (150-450) 08/21/19 06:27 MPV 10.1 fL (7.4-10.4) 08/21/19 06:27 Sodium 135 mmol/L (135-145) 08/21/19 06:27 Potassium 3.3 mmol/L (3.5-5.0) L 08/21/19 06:27 Chloride 100 mmol/L (101-111) L 08/21/19 06:27 Carbon Dioxide 27 mmol/L (22-32) 08/21/19 06:27 Anion Gap 8 mmol/L (2-11) 08/21/19 06:27 BUN 17 mg/dL (6-24) 08/21/19 06:27 Creatinine 0.85 mg/dL (0.67-1.17) 08/21/19 06:27 Est GFR ( Amer) 107.5 (>60) 08/21/19 06:27 Est GFR (Non-Af Amer) 88.9 (>60) 08/21/19 06:27 BUN/Creatinine Ratio 20.0 (8-20) 08/21/19 06:27 Glucose 134 mg/dL (70-100) H 08/21/19 06:27 POC Glucose (mg/dL) 135 mg/dL (70-100) H 08/21/19 07:24 Calcium 8.2 mg/dL (8.6-10.3) L 08/21/19 06:27
[2019-08-21] MEDS: traMADol TAB* 50 MG PO PRN ×2 (12:35→20:33)
[2019-08-21] MEDS: Morphine TAB Extended Release (*) 15 MG TAB.ER PO SCH (17:19)
[2019-08-22] MEDS: Cyclobenzaprine TAB* 10 MG PO PRN (01:11)
[2019-08-22] MEDS: Morphine TAB Extended Release (*) 15 MG TAB.ER PO SCH (04:51)
[2019-08-22] MEDS: Acetaminophen TAB* 325 MG PO SCH ×2 (04:58→12:51)
[2019-08-22 05:12] LABS: Hematocrit 34 % (42-52); Hemoglobin 11.7 g/dL (14.0-18.0); Mean Platelet Volume 10.3 fL (7.4-10.4); Platelet Count 140 10^3/uL (150-450)
[2019-08-22] MEDS: PTO:Umeclidinium 62.5 MDI(NF) MDI INH SCH (08:28)
[2019-08-22] MEDS: traMADol TAB* 50 MG PO PRN (08:44)
[2019-08-22] MEDS: Vitamin THERAPEUTIC TAB PO SCH (08:45)
[2019-08-22] MEDS: Allopurinol TAB* 100 MG PO SCH (08:45)
[2019-08-22] MEDS: Docusate CAP* 100 MG PO SCH (08:45)
[2019-08-22] MEDS: Apixaban* 2.5 MG TAB PO SCH (08:45)
[2019-08-22] MEDS: Magnesium Hydroxide LIQ* 30 ML UDC PO SCH (08:47)
[2019-08-22] MEDS ORDERED: Potassium Chlor TAB* 20 MEQ TAB.ER PO ONE (09:44)
[2019-08-22] MEDS: PTO:Liraglutide (NF) 18 MG/3 ML SUBCUT SCH (10:22)
[2019-08-22] MEDS ORDERED: Bisacodyl SUPP* 10 MG SUPP PR PRN (10:40)
--- NOTE | 2019-08-22 10:56 | DS ---
Orthopedic Discharge Summary - Discharge Summary Date of Admission:08/20/19 Date of Discharge: 08/22/19 Date of Surgery: 08/20/19 Attending Orthopedic Provider: Dr Washington Pre-operative Diagnosis: Right knee osteoarthritis Operative Procedure: Right total knee replacement Disposition of Patient: home with VNS Condition of Patient: stable History: LATRELL RASCON is a 69 year old M with years of increasingly severe right knee pain. Patient has failed conservative management and has elected to undergo a right total knee replacement Hospital Course: LATRELL was admitted to [facility] on 08/20/19. Patient underwent a right total knee replacement without complication followed by a brief recovery in PACU and transfer to the Short Stay Surgical Unit in stable condition. Our hospitalist service, physical therapy also participated in this patients care. Post-op day 1: patient was alert and in no acute distress. Dressing was clean, dry and intact. Operative extremity dorsiflexion and plantarflexion intact, sensation intact to light touch distally, DP2+. Post- op day two: dressing was changed, incision was clean, dry and intact. Patient was deemed to be medically and orthopedically stable for discharge. Physical therapy goals were met. Home Medications Medication Instructions Recorded Confirmed Type Allopurinol TAB* [Zyloprim 100 MG 1 tab PO BID 12/19/17 08/20/19 History TAB*] Aspirin [Aspirin 81 MG TAB] 1 tab PO QAM 12/19/17 08/20/19 History Glyburid/Metformin 2.5/500(NF) 2 tab PO BID 12/19/17 08/20/19 History Liraglutide [Victoza 3-Mu] 1.2 mg SUBCUT QAM 12/19/17 08/20/19 History Nitroglycerin 0.4 mg SL SEE INSTRUCTIONS PRN 12/19/17 08/20/19 History Albuterol HFA INHALER* [Ventolin 2 puff INH BID PRN 12/28/17 08/07/19 History HFA Inhaler*] Cyclobenzaprine TAB* [Flexeril 10 10 mg PO TID 08/07/19 08/20/19 History MG TAB*] Hydrochlorothiazide TAB* 25 mg PO QAM 08/07/19 08/20/19 History [Hydrodiuril TAB*] Umeclidinium 62.5 MDI(NF) [Incruse 2 puff INH QAM 08/07/19 08/20/19 History ELLIPTA MDI (NF)] Apixaban* [Eliquis*] 2.5 mg PO BID #60 tab 08/22/19 Rx Docusate CAP* [Colace Cap*] 100 mg PO BID #90 cap 08/22/19 Rx Morphine TAB Extended Rel(*) [Ms 15 mg PO Q12H #6 tab.er MDD 2 08/22/19 Rx Contin(*)] oxyCODONE/Acetamin 5/325 MG* 1 tab PO Q4H PRN tab MDD 10 08/22/19 Rx [Percocet 5/325 TAB*] oxyCODONE/Acetamin 5/325 MG* 2 tab PO Q4H PRN #70 tab MDD 10 08/22/19 Rx [Percocet 5/325 TAB*] Discharge Instructions following Orthopedic Surgery: Activity: * Weight Bearing as tolerated * Continue physical therapy and occupational therapy exercises as shown * Home PT Wound care: * OK to shower on post-op day 3, no bathing, swimming, or submerging wound. * Use gentle soap, pat dry. Cover with gauze, MOO wrap or tape. * Visiting home nurse to do wound checks. Call Orthopedic office for: * Increased drainage * Redness * Increased pain * Fever Go to ER with shortness of breath or chest pain. Diet: * Regular diet * Increase fluids and fiber to prevent constipation. * Continue to use stool softeners, call office if no bowel motion within 48 hours. Medications See Home Medication List in your packet for medications that you should take after discharge. DVT Prophylaxis: Eliquis Dosin.5 mg, 1 tab every 12 hours x 30 days. Increases bleeding tendency Pain Control: Percocet Dosin/325 mg 1 tab for mild 2 tabs for moderate pain by mouth every 4-6 hours as needed for pain. Maximum of 10 tabs per day. Hold for sedation, wean off as soon as pain allows. Please note that Percocet contains Tylenol (acetaminophen). Maximum daily dose of Tylenol is 4000 mg from all sources. MS contin 15 mg 1 tab every 12 hours for severe pain. wean off of this medication first. wean off as soon as pain allows and hold for sedation Antibiotics are required prior to any dental work. FOLLOW UP: Follow up with [Felix] Within 10-14 days, call for appointment Please call our office with any questions or concerns ([phone]) [place] [facility] [place]
[2019-08-22 11:36] VITALS: BP 129/64
== END 2019-08-22 13:15 | disposition home health service (06) | DRG 470 ==
LOC: AA 05:38 → SSU 10:40
PROVIDERS: ADMIT Orthopaedic Surgery Adult Reconstructive Orthopaedic Surgery; ATTEND Orthopaedic Surgery Adult Reconstructive Orthopaedic Surgery
PROC: 0SRC0J9 Replacement of Right Knee Joint with Synthetic Substitute, Cemented, Open Approach (ICD-10-PCS; principal; 2019-08-20 08:00)
DX: M17.11 Unilateral primary osteoarthritis, right knee (principal); I25.10 Atherosclerotic heart disease of native coronary artery without angina pectoris; J44.9 Chronic obstructive pulmonary disease, unspecified; M10.9 Gout, unspecified; E11.9 Type 2 diabetes mellitus without complications; G89.29 Other chronic pain; M54.9 Dorsalgia, unspecified; K59.00 Constipation, unspecified; E78.2 Mixed hyperlipidemia; E78.00 Pure hypercholesterolemia, unspecified; M25.761 Osteophyte, right knee; G47.30 Sleep apnea, unspecified; E66.9 Obesity, unspecified; I10 Essential (primary) hypertension; Z95.5 Presence of coronary angioplasty implant and graft; Z82.3 Family history of stroke; Z80.42 Family history of malignant neoplasm of prostate; Z72.89 Other problems related to lifestyle; Z68.35 Body mass index [BMI] 35.0-35.9, adult; Z79.82 Long term (current) use of aspirin; Z79.84 Long term (current) use of oral hypoglycemic drugs
CPT/HCPCS: 36415; 80048; 84132; 85014; 85018; 85049; 88305; 88311; 94640; A9270-GY; C1776; G8978-GP-CK; G8979-GP-CI; J0690; J2250; J2270; J3010; J3490; J3535

== ENCOUNTER 2022-05-26 08:10 | Observation (INO) ==
[~2022-05-26 08:10] MED LIST changes: +Buffered Lidocaine 1% SYRIN 1 ml INTRADERM ONE; -Buffered Lidocaine 1% SYRIN* 1 ML/SYRINGE INTRADERM ONE; +Famotidine IV 10 MG/ML 2 ml VIAL (20 mg) IV ONE; +Lactated Ringers 1000 ml BAG 1,000 ML IV SCH; -Tranexamic Acid 1,000 MG in NS 0.9% 50 ML* (outpatient use) IV SCH
[2022-05-26] MEDS ORDERED: ceFAZolin 2 GM PREMIX 2 GM/50 ML BAG ONE (08:47)
[2022-05-26] MEDS ORDERED: Famotidine IV 10 MG/ML 2 ml VIAL (20 mg) ONE (08:47)
[2022-05-26] MEDS ORDERED: ROPIVACAINE 5 MG/ML 30 ML BTL (0.5%) ONE ×2 (10:16→10:26)
[2022-05-26] MEDS ORDERED: Labetalol IV 5 MG/ML 20 ml VIAL ONE (10:33)
[2022-05-26] MEDS ORDERED: Propofol 10 MG/ML 20 ML BTL ONE (11:45)
[2022-05-26] MEDS ORDERED: fentaNYL 100 mcg/2 ml 50 MCG/ML VIAL ONE (11:45)
[2022-05-26] MEDS ORDERED: Midazolam 2 mg/2 ml VIAL 1 mg/ml 2 ml VIAL (2 mg) ONE (11:45)
[2022-05-26] MEDS ORDERED: Ondansetron 4 mg VIAL 2 MG/ML 2 ml VIAL ONE (11:45)
[2022-05-26] MEDS ORDERED: Dexamethasone IV 4 MG/ML VIAL 1 ml VIAL ONE (11:45)
[2022-05-26] MEDS ORDERED: Lidocaine 2% PF 5 ML VIAL ONE (11:45)
[2022-05-26] MEDS ORDERED: Naloxone 0.4 mg VIAL 0.4 mg/ml 1 ml VIAL IV PRN (11:58)
[2022-05-26] MEDS ORDERED: Morphine 4 MG/ML VIAL (1 ml) IV PRN (11:58)
[2022-05-26] MEDS ORDERED: Prochlorperazine 5 mg/ml 2 ml VIAL (10 mg) IV PRN (11:58)
[2022-05-26] MEDS ORDERED: fentaNYL 100 mcg/2 ml 50 MCG/ML VIAL IV PRN (11:58)
[2022-05-26] MEDS ORDERED: Magnesium Hydroxide LIQ 30 ML UDC PO PRN (12:37)
[2022-05-26] MEDS ORDERED: Lactulose 30 ml UDC PO PRN (12:37)
[2022-05-26] MEDS ORDERED: Ondansetron 4 mg VIAL 2 MG/ML 2 ml VIAL IV PRN (12:37)
[2022-05-26] MEDS ORDERED: Ondansetron ODT 4 mg TAB 4 MG TAB PO PRN (12:37)
[2022-05-26] MEDS ORDERED: Morphine 2 MG/ML SYRINGE IV PRN (12:37)
[2022-05-26] MEDS ORDERED: Albuterol HFA INHALER 8 gm MDI INH PRN ×2 (12:42→16:10)
[2022-05-26] MEDS ORDERED: SPIRIVA RESPIMAT 2.5 MCG INH SCH (12:45)
[2022-05-26] MEDS ORDERED: Dextrose 50% Syringe 50 ml 25 GM/50 ML SYRINGE IV PUSH PRN (16:14)
[2022-05-26] MEDS: Lactated Ringers 1000 ml BAG 1,000 ML IV SCH (16:20)
[2022-05-26] MEDS: ceFAZolin 1 GM ADVAN 1 GM in NS 0.9% 50 ML 50 ML IVPB SCH (19:29)
[2022-05-26] MEDS ORDERED: Glyburid/Metformin 2.5/500(NF) TAB PO SCH (21:00)
[2022-05-26] MEDS: Magnesium Hydroxide LIQ 30 ML UDC PO SCH (21:23)
[2022-05-27] MEDS: ceFAZolin 1 GM ADVAN 1 GM in NS 0.9% 50 ML 50 ML IVPB SCH ×2 (03:38→12:30)
[2022-05-27 05:50] LABS: Hematocrit 41 % (42-52); Hemoglobin 13.5 g/dL (14.0-18.0); Mean Platelet Volume 10.5 fL (7.4-10.4); Platelet Count 159 10^3/uL (150-450)
[2022-05-27] MEDS: Lactated Ringers 1000 ml BAG 1,000 ML IV SCH (05:54)
[2022-05-27 05:57] LABS: Calcium 8.8 mg/dL (8.6-10.3); eGFR CKD-EPI 58.2 (>60)
[2022-05-27] MEDS: Aspirin EC 81 mg TAB.EC (enteric coated) PO SCH (08:25)
[2022-05-27] MEDS: Vitamin THERAPEUTIC TAB PO SCH (08:26)
[2022-05-27] MEDS: PTO: SPIRIVA Respimat (tiotropium) 2.5 mcg/inh Inhaler INH SCH (08:27)
[2022-05-27] MEDS: Magnesium Hydroxide LIQ 30 ML UDC PO SCH ×2 (08:27→21:09)
[2022-05-27] MEDS: PTO: Liraglutide (NF) 18 MG/3 ML SUBCUT SCH (08:28)
[2022-05-27] MEDS ORDERED: Umeclidinium 62.5 MDI(NF) MDI INH SCH (09:00)
[2022-05-28 06:20] LABS: Hematocrit 37 % (42-52); Platelet Count 155 10^3/uL (150-450)
[2022-05-28] MEDS: Aspirin EC 81 mg TAB.EC (enteric coated) PO SCH (08:17)
[2022-05-28] MEDS: Vitamin THERAPEUTIC TAB PO SCH (08:19)
[2022-05-28] MEDS: Magnesium Hydroxide LIQ 30 ML UDC PO SCH (08:19)
[2022-05-28] MEDS: PTO: Liraglutide (NF) 18 MG/3 ML SUBCUT SCH (08:20)
[2022-05-28] MEDS: PTO: SPIRIVA Respimat (tiotropium) 2.5 mcg/inh Inhaler INH SCH (08:21)
[2022-05-28 12:53] VITALS: BP 152/90
== END 2022-05-28 16:30 | disposition home or self-care (01) ==
LOC: INTOOBSV 08:10 → AA 08:10 → EDSTATUS 10:30 → SSU 15:47
PROVIDERS: ADMIT Orthopaedic Surgery Adult Reconstructive Orthopaedic Surgery; ATTEND Orthopaedic Surgery Adult Reconstructive Orthopaedic Surgery

== ENCOUNTER 2024-10-26 12:49 | Observation (INO) ==
[2024-10-26 13:16] LABS: ABS Basophils 0.1 10^3/uL (0.0-0.1); ABS Eosinophils 0.1 10^3/uL (0.0-0.5); ABS Lymphocytes 1.8 10^3/uL (1.0-4.8); ABS Monocytes 0.7 10^3/uL (0.0-1.1); ABS Neutrophils 4.9 10^3/uL (1.5-7.6); Eosinophil % 1.9 %; Hematocrit 37.4 % (38-53); Hemoglobin 12.6 g/dL (13.2-16.3); Lymphocyte % 23.8 %; Mean Corpuscular Hemoglobin 28.7 pg (27-33); Mean Corpuscular Hgb Conc 33.7 g/dL (31-36); Mean Corpuscular Volume 85.2 fL (80-97); Mean Platelet Volume 9.3 fL (7.5-11.2); Platelet Count 190 10^3/uL (150-450); Red Blood Count 4.39 10^6/uL (4.06-5.63); Red Cell Distribution Width 14.4 % (12-17); White Blood Count 7.7 10^3/uL (3.6-10.2)
[2024-10-26 13:26] LABS: INR 1.2 (0.85-1.14)
[2024-10-26 13:56] LABS: Albumin 3.5 g/dL (3.2-5.2); Albumin/Globulin Ratio 1.5 (1-3); Calcium 8.4 mg/dL (8.6-10.3); Creatinine, Serum 1.1 mg/dL (0.67-1.17); Globulin 2.3 g/dL (2-4); Potassium 3.6 mmol/L (3.5-5.0); Total Bilirubin 0.5 mg/dL (0.2-1.0); Total Protein 5.8 g/dL (6.4-8.9); eGFR CKD-EPI 69.6 (>60)
[2024-10-26 14:46] LABS: High Sensitivity Troponin 1 Hr 9 pg/mL (<20)
[2024-10-26] MEDS ORDERED: Dextrose 50% Syringe 50 ml 25 GM/50 ML SYRINGE IV PUSH PRN (15:41)
[2024-10-26 15:49] LABS: Magnesium 1.5 mg/dL (1.9-2.7)
[2024-10-26 16:24] LABS: TSH Ultra Thyroid Stim Horm 2.99 mcIU/mL (0.34-5.60)
[2024-10-26] MEDS: Aspirin EC 81 mg TAB.EC (enteric coated) PO SCH (18:16)
[2024-10-26] MEDS: Magnesium Sulfate 2 gm BAG 2 GM/50 ML BAG IVPB ONE (18:16)
[2024-10-26] MEDS: Potassium Chlor 20 meq TAB.ER PO ONE (18:16)
[2024-10-27] MEDS: SPIRIVA Respimat (tiotropium) 2.5 mcg/inh Inhaler INH SCH (16:56)
[2024-10-28 05:38] LABS: Hematocrit 38.5 % (38-53); Hemoglobin 13.1 g/dL (13.2-16.3); Mean Corpuscular Hemoglobin 29.2 pg (27-33); Mean Corpuscular Hgb Conc 33.9 g/dL (31-36); Mean Corpuscular Volume 86.2 fL (80-97); Mean Platelet Volume 9.6 fL (7.5-11.2); Platelet Count 197 10^3/uL (150-450); Red Blood Count 4.46 10^6/uL (4.06-5.63); Red Cell Distribution Width 14.5 % (12-17)
[2024-10-28 06:07] LABS: Calcium 9.1 mg/dL (8.6-10.3); Creatinine, Serum 1.11 mg/dL (0.67-1.17); HDL Cholesterol 36.1 mg/dL; Magnesium 1.8 mg/dL (1.9-2.7); Phosphorus 4.3 mg/dL (2.5-5.0); Potassium 4.7 mmol/L (3.5-5.0); eGFR CKD-EPI 68.8 (>60)
[2024-10-28] MEDS: Magnesium Sulfate 2 gm BAG 2 GM/50 ML BAG IVPB ONE (07:51)
[2024-10-28] MEDS ORDERED: Aminophylline 25 MG/ML VIAL ONE (12:49)
[2024-10-28] MEDS ORDERED: Regadenoson 0.4 MG/5 ML SYRINGE ONE (12:55)
[2024-10-28] MEDS: Sulfur Hexaflouride MICROSPHR 25 MG VIAL IV PRN (14:15)
[2024-10-28 18:13] VITALS: BP 164/88
== END 2024-10-28 18:34 | disposition home or self-care (01) ==
LOC: ED 12:49 → EDHOLD 12:49 → MEDTELE 21:20
PROVIDERS: ADMIT Internal Medicine; ATTEND Internal Medicine